=== PATIENT | female | born 1975 | race Caucasian/White ===

== ENCOUNTER 2018-07-19 21:38 | Emergency (ER) | payer MEDICAID ==
[~2018-07-19] VITALS: Ht 175.3 cm; Wt 113.4 kg
[~2018-07-19 21:38] MED LIST: NO MEDS
[2018-07-19 21:42] VITALS: BP 173/108
--- NOTE | 2018-07-19 21:46 | NUR ---
PT TAKEN TO BED 2
--- NOTE | 2018-07-19 21:54 | NUR ---
PT PRESENTS TO ED WITH C/O RASH TO BILATERAL LEGS S/P [place] BITES X 1 MONTH. RED RASH NOTED TO BILATERAL LEGS. SKIN INTACT. PT DENIES PAIN AT THIS TIME. PT DENIES SOB, CP. PT PLACED IN BED, PENDING MD DIA. VSS.
[2018-07-19 22:19] VITALS: BP 168/99
--- NOTE | 2018-07-19 22:20 | NUR ---
Patient discharged with v/s stable. Written and verbal after care instructions given and explained. Patient alert, oriented and verbalized understanding of instructions. Ambulatory with steady gait. All questions addressed prior to discharge. ID band removed. Patient advised to follow up with PMD. Rx of KEFLEX, DIPHENHYDRAMINE, PREDNISONE given. Patient educated on indication of medication including possible reaction and side effects. Opportunity to ask questions provided and answered.
== END 2018-07-19 22:20 | disposition home or self-care (01) ==
LOC: MED 21:38
DX: L25.9 Unspecified contact dermatitis, unspecified cause (principal)
CPT/HCPCS: 99283

== ENCOUNTER 2020-04-17 10:21 | Emergency (ER) | payer MEDICAID ==
[~2020-04-17] VITALS: Ht 175.3 cm; Wt 113.4 kg
[2020-04-17 10:24] VITALS: BP 155/97
--- NOTE | 2020-04-17 10:32 | NUR ---
PT AMUBULATED TO ER BED 07
[2020-04-17] MEDS ORDERED: ONDANSETRON 4 MG ODT PO ONE (10:40)
[2020-04-17] MEDS ORDERED: MECLIZINE 25 MG TAB PO ONE (10:45)
--- NOTE | 2020-04-17 10:45 | NUR ---
45 Y/O FEMALE PRESENTS WITH DIZZINESS THAT BEGAN 5 DAYS AGO, FOLLOWED BY NAUSEA AND VOMITING. PT STATES "IT FEELS LIKE THE ROOM IS SPINNING EVEN WHEN MY EYES ARE CLOSED", DENIES ANY ABD PAIN, HEADACHE, FEVER, CHILLS, COUGH. LMP: PT IS CURRENTLY SPOTTING AND ALSO HAD A HYSTERECTOMY 17 YEARS AGO. VSS. RESP EVEN AND UNLABORED. ABD SOFT/NON DISTENDED. BOWEL SOUNDS NORMOACTIVE IN ALL QUADRANTS.
--- NOTE | 2020-04-17 11:07 | NUR ---
pt taken to ct via wheelchair
--- NOTE | 2020-04-17 11:10 | NUR ---
PT BACK FROM CT SCAN, RESTING IN BED AT THIS TIME
[2020-04-17 11:48] VITALS: BP 155/97
== END 2020-04-17 11:49 | disposition home or self-care (01) ==
LOC: MED 10:21
DX: R42 Dizziness and giddiness (principal); R03.0 Elevated blood-pressure reading, without diagnosis of hypertension; R11.2 Nausea with vomiting, unspecified
CPT/HCPCS: 70450; 81025; 99284; J8597; Q0162

== ENCOUNTER 2021-05-03 13:05 | Emergency (ER) | payer MEDICAID ==
[~2021-05-03] VITALS: Ht 175.3 cm; Wt 127.0 kg
[2021-05-03 13:16] VITALS: BP 159/99
--- NOTE | 2021-05-03 13:22 | NUR ---
PT TAKEN TO BED 11.
[2021-05-03] MEDS ORDERED: KETOROLAC 30 MG/ML VIAL IVP ONE (13:45)
--- NOTE | 2021-05-03 13:50 | NUR ---
46 YO FEMALE BIBS C/O 06/15 EPIGASTRIC PAIN WITH N/V. THAT STARTED LASTNIGHT. PATIENT STATES S/S BEGAN LASTNIGHT, SHE TOOK A TUMS, WHEN TO SLEEP, AT 4AM AWOKE WITH SAME S/S SO DECIDED TO SEEK TREATMENT. VOMIT DESCRIBED NORMAL. PER PATIENT, SHE BELIEVES SHE MAY HAVE AN ULCER. DENIES SOB, CHEST PAIN, FEVER, CHILLS, DIARRHEA. PATIENT IS A&OX4, RR EVEN AND UNLABORED. PMH: DENIES NKDA
--- NOTE | 2021-05-03 14:26 | NUR ---
BLOOD WORK COLLECTED AND WALKED TO LAB.
[2021-05-03 14:50] LABS: BASOPHILS # (AUTO) 0.1 K/uL (0.00-0.22); BASOPHILS % (AUTO) 0.6 % (0.0-2.0); EOSINOPHILS # (AUTO) 0.1 K/uL (0-0.4); EOSINOPHILS % (AUTO) 0.9 % (0.0-4.0); HEMATOCRIT 39.9 % (36-48); HEMOGLOBIN 13.4 g/dL (12.0-16.0); LYMPHOCYTES # (AUTO) 0.8 K/uL (2.5-16.5); LYMPHOCYTES % (AUTO) 8.4 % (20.5-51.1); MEAN CORPUSCULAR HEMOGLOBIN 29 pg (27-31); MEAN CORPUSCULAR HGB CONC 34 g/dL (33-37); MEAN CORPUSCULAR VOLUME 87.2 fL (80-94); MONOCYTES # (AUTO) 0.7 K/uL (0.8-1.0); MONOCYTES % (AUTO) 7.3 % (1.7-9.3); NEUTROPHILS # (AUTO) 8.2 K/uL (1.8-7.7); NEUTROPHILS % (AUTO) 82.8 % (42.2-75.2); PLATELET COUNT (AUTO) 265 K/uL (140-450); RED BLOOD CELL COUNT(AUTO) 4.57 MIL/uL (4.20-5.40); RED CELL DISTRIBUTION WIDTH 15.2 % (11.6-13.7); WHITE BLOOD COUNT (AUTO) 9.9 K/uL (4.8-10.8)
[2021-05-03 15:09] LABS: ALBUMIN 3.4 g/dL (3.4-5.0); ANION GAP 14.1 (8-16); CARBON DIOXIDE 24.5 mmol/L (21-32); CREATININE 0.9 mg/dL (0.6-1.3); POTASSIUM 3.6 mmol/L (3.5-5.1); TOTAL BILIRUBIN 1.2 mg/dL (0.0-1.0)
--- NOTE | 2021-05-03 15:48 | NUR ---
ULTRASOUND AT BEDSIDE
--- NOTE | 2021-05-03 15:48 | NUR ---
Ugo tate in [facility] - 05/03/21 at 1559 by JOVITA RAD AT BEDSIDE
[2021-05-03 17:00] VITALS: BP 136/83
--- NOTE | 2021-05-03 17:22 | NUR ---
PATIENT IN BED AWAKE AND ALERT, RR EVEN AND UNLABORED.
--- NOTE | 2021-05-03 17:37 | NUR ---
DR SOL AT BEDSIDE SPEAKING WITH PATIENT.
--- NOTE | 2021-05-03 17:55 | NUR ---
Patient discharged with v/s stable. Written and verbal after care instructions given and explained. Patient verbalized understanding. Ambulatory with steady gait. All questions addressed prior to discharge. Advised to follow up with PMD.
== END 2021-05-03 17:55 | disposition home or self-care (01) ==
LOC: MED 13:05
DX: K80.20 Calculus of gallbladder without cholecystitis without obstruction (principal); R11.10 Vomiting, unspecified
CPT/HCPCS: 36415; 76705; 80053; 81002; 81025; 83690; 85025; 96374; 99284; J1885

== ENCOUNTER 2021-05-04 00:06 | Inpatient (IN) | payer MEDICAID, SELFPAY ==
[~2021-05-04] VITALS: Ht 175.3 cm; Wt 122.0 kg
[2021-05-04 00:27] VITALS: BP 166/97
--- NOTE | 2021-05-04 00:35 | NUR ---
SEE COMPLETE ASSESSMENT FOR FUTHER DETAILS.
--- NOTE | 2021-05-04 00:38 | NUR ---
ERMD AT BEDSIDE FOR MEDICAL EVALUATION.
[2021-05-04] MEDS ORDERED: KETOROLAC 30 MG/ML VIAL IVP ONE (00:40)
[2021-05-04] MEDS ORDERED: MORPHINE SULFATE 4 MG/ML SYR IVP ONE (00:40)
[2021-05-04] MEDS ORDERED: ONDANSETRON 4 MG/2 ML VIAL IVP ONE (00:40)
--- NOTE | 2021-05-04 00:50 | NUR ---
BLOOD DRAWN VIA IV START AND GIVEN TO KISHAN OVALLE TECH
[2021-05-04 01:13] LABS: BASOPHILS % (AUTO) 0.5 % (0.0-2.0); EOSINOPHILS # (AUTO) 0.2 K/uL (0-0.4); EOSINOPHILS % (AUTO) 2.2 % (0.0-4.0); HEMATOCRIT 40.3 % (36-48); HEMOGLOBIN 13.4 g/dL (12.0-16.0); LYMPHOCYTES # (AUTO) 1.1 K/uL (2.5-16.5); LYMPHOCYTES % (AUTO) 12.5 % (20.5-51.1); MEAN CORPUSCULAR HEMOGLOBIN 29 pg (27-31); MEAN CORPUSCULAR HGB CONC 33 g/dL (33-37); MEAN CORPUSCULAR VOLUME 87.5 fL (80-94); MONOCYTES # (AUTO) 0.8 K/uL (0.8-1.0); NEUTROPHILS # (AUTO) 6.3 K/uL (1.8-7.7); NEUTROPHILS % (AUTO) 74.8 % (42.2-75.2); PLATELET COUNT (AUTO) 287 K/uL (140-450); RED BLOOD CELL COUNT(AUTO) 4.61 MIL/uL (4.20-5.40); RED CELL DISTRIBUTION WIDTH 14.9 % (11.6-13.7); WHITE BLOOD COUNT (AUTO) 8.4 K/uL (4.8-10.8)
[2021-05-04 01:40] LABS: ALBUMIN 3.4 g/dL (3.4-5.0); ANION GAP 10.6 (8-16); CARBON DIOXIDE 27.7 mmol/L (21-32); CREATININE 1.2 mg/dL (0.6-1.3); POTASSIUM 4.3 mmol/L (3.5-5.1); TOTAL BILIRUBIN 0.7 mg/dL (0.0-1.0)
[2021-05-04 01:52] LABS: BILIRUBIN,DIRECT 0.3 mg/dL (0.0-0.3); TOTAL BILIRUBIN 0.7 mg/dL (0.0-1.0)
[2021-05-04] MEDS ORDERED: cefTRIAXone 2,000 MG in DEXTROSE 5% 100 ML IV ONE (03:00)
[2021-05-04] MEDS ORDERED: metroNIDAZOLE 500 MG/NS PREMIX 100 ML IV ONE (03:00)
--- NOTE | 2021-05-04 03:06 | NUR ---
Patient denies pain at this time. 0/10 abdominal pain. Patient has no episodes of n/v at this time. Patient given blanket for comfort measures. IV remains patient. patient remains on caridac monitor. VSS. Bed is locked and in lowest position.
[2021-05-04] MEDS ORDERED: cefTRIAXone 2,000 MG VIAL ONE (03:36)
[2021-05-04] MEDS ORDERED: DEXT 5% / NACL 0.9% 1,000 ML IV SCH (04:05)
--- NOTE | 2021-05-04 05:12 | NUR ---
Patient appears to be resting comfortably in bed. Patient remains on caridac monitor. Vital Signs within normal limits. Respirations even and unlabored. bed is locked and in lowest postion at this time.
--- NOTE | 2021-05-04 06:50 | NUR ---
PATIENT HAD C/O 7/10 LUQ PAIN, PRN MORPHINE 2MG GIVEN IVP. PATIENT REMAINS ON TELEPHONE SURVEYOR. VSS. BED IS LOCKED AND IN LOWEST POSITION.
[2021-05-04] MEDS: MORPHINE SULFATE 2 MG/ML SYR IVP PRN ×3 (06:58→21:17)
--- NOTE | 2021-05-04 07:15 | NUR ---
GAVE REPORT TO OBEY CORDOVA, TRANSFER OF CARE.
--- NOTE | 2021-05-04 07:15 | NUR ---
REPORT RECEIVED FROM MALENA CORDOVA FOR CONTINUITY OF CARE
--- NOTE | 2021-05-04 07:16 | NUR ---
PT A&OX4, AWAKE, ON ROOM AIR. IV SITE RT AC 20 G INFUSING D5 NS AT 80 ML/HR. CALL LIGHT WITHIN REACH. SAFETY PREACAUTIONS IN PLACE. WILL CONTINUE TO MONITOR.
--- NOTE | 2021-05-04 07:41 | NUR ---
Patient will be admitted to care of DR STEIN. Admited to [facility]. Will go to room 105A. Belongings list completed. Report to XIMENA CORDOVA.
--- NOTE | 2021-05-04 07:41 | NUR ---
RECEIVED REPORT FROM EXHAUSTER FOR PATIENT. PATIENT IS BEING ADMITTED FOR CHOLECYSTITIS, CHIEF COMPLAINT WAS ABDOMINAL PAIN. PATIENT IS NPO EXCEPT MEDS AND AWAITING A HIDA SCAN PROCEDURE. WILL WAIT FOR PATIENT TO ARRIVE TO UNIT.
--- NOTE | 2021-05-04 07:48 | NUR ---
RECEIVED PATIENT FROM ER. PATIENT IS STABLE. RESPIRATIONS ARE EVEN AND UNLABORED. PATIENT IS NPO EXCEPT MEDS AWAITING HIDA SCAN.
[2021-05-04] MEDS ORDERED: ZOLPIDEM 5 MG TAB PO PRN (08:05)
[2021-05-04] MEDS ORDERED: POTASSIUM CHLORIDE 10 MEQ TABER PO PRN (08:05)
[2021-05-04] MEDS ORDERED: ACETAMINOPHEN 325 MG TAB PO PRN (08:05)
[2021-05-04] MEDS ORDERED: ONDANSETRON 4 MG/2 ML VIAL IM/IVP PRN (08:05)
[2021-05-04] MEDS ORDERED: HYDROcodone/APAP 7.5/325 MG 1 TAB PO PRN (08:05)
[2021-05-04] MEDS ORDERED: DOCUSATE SODIUM 100 MG GELCAP PO PRN (08:05)
[2021-05-04] MEDS: DEXT 5% /NACL 0.9% 1,000 ML IV SCH ×3 (08:05→21:17)
[2021-05-04] MEDS ORDERED: guaiFENesin DM 200/20 MG-10 ML 10 ML UDC PO PRN (08:05)
--- NOTE | 2021-05-04 08:25 | NUR ---
DR. UPTON AT BEDSIDE DISCUSSING PLAN OF CARE WITH PATIENT. PATIENT VERBALIZED UNDERSTANDING.
[2021-05-04 09:45] LABS: PROTHROMBIN TIME 10.6 secs (10.8-13.4)
[2021-05-04] MEDS: PANTOPRAZOLE 40 MG TABEC PO SCH (09:49)
[2021-05-04 09:56] LABS: CHOL/HDL RATIO 5.1 (1-4.5); FREE T4 (FREE THYROXINE) 0.9 ng/dL (0.76-1.46); MAGNESIUM 1.7 mg/dL (1.8-2.4); THYROID STIMULATING HORMONE 1.86 uIU/mL (0.34-3.74)
--- NOTE | 2021-05-04 13:00 | NUR ---
MOWING MACHINE OPERATOR AT BEDSIDE WITH PATIENT STARTING HIDA SCAN. PATIENT IS STABLE.
--- NOTE | 2021-05-04 15:05 | NUR ---
PATIENT IS RESTING IN BED. NO S/S OF DISTRESS. ALL SAFETY PRECAUTIONS IN PLACE.
[2021-05-04 16:00] VITALS: BP 156/95
[2021-05-04 16:44] LABS: APPEARANCE,URINE SL CLOUDY (CLEAR); BILIRUBIN,URINE NEGATIVE (NEGATIVE); BLOOD, URINE 3+ (NEGATIVE); COLOR,URINE YELLOW (YELLOW); LEUKOCYTE ESTERASE ,URINE TRACE (NEGATIVE); NITRITE, URINE NEGATIVE (NEGATIVE); PH,URINE 5.5 (5.0-9.0); UGLUCOSE TRACE (NEGATIVE)
[2021-05-04 16:50] LABS: RBC,URINE >100 /HPF (0-5)
[2021-05-04 16:53] LABS: BARBITURATE, URINE NEGATIVE ng/ml (NEG <=200); BENZODIAZEPINE, URINE NEGATIVE ng/mL (NEG <=200); CANNABINOID, URINE NEGATIVE ng/mL (NEG <=50); COCAINE, URINE NEGATIVE ng/mL (NEG <=300); OPIATE, URINE POSITIVE ng/mL (NEG <=2000); PHENCYCLIDINE SCREEN,URINE NEGATIVE ng/mL (NEG <=25)
--- NOTE | 2021-05-04 17:20 | NUR ---
PATIENT IS RESTING IN BED. NO S/S OF DISTRESS. ALL SAFETY PRECAUTIONS IN PLACE.
--- NOTE | 2021-05-04 19:32 | NUR ---
ENDORSED PATIENT AND PLAN OF CARE TO FOUNDER CEO & PRESIDENT RN FOR CONTINUITY OF CARE. PATIENT IS STABLE.
--- NOTE | 2021-05-04 19:39 | NUR ---
RECEIVEDREPORT AT BEDSIDE.PT'S CONDITION IS STABLE.IVF INFUSING WELL.NO RESP DISTRESS NOTED.CALL LIGHT WITHIN REACH.WILL CONT.MONITORING.
[2021-05-04 20:00] VITALS: BP 144/80
--- NOTE | 2021-05-05 02:16 | NUR ---
NPO AFTER MN.SLEEPING.PRE-OP CHECK LIST DONE.NO DISTRESS NOTED AT PRESENT TIME.
[2021-05-05 04:00] VITALS: BP 140/78
[2021-05-05] MEDS: DEXT 5% /NACL 0.9% 1,000 ML IV SCH (05:37)
--- NOTE | 2021-05-05 06:04 | NUR ---
SLEPT WELL.WILL HAVE LAP.BRENDA TODAY.NO DISTRESS NOTED.
[2021-05-05 06:16] LABS: T4 (THYROXINE) 7.6 ug/dL (4.5-12.0)
[2021-05-05 07:23] LABS: HEMATOCRIT 36.6 % (36-48); HEMOGLOBIN 11.9 g/dL (12.0-16.0); MEAN CORPUSCULAR HEMOGLOBIN 29 pg (27-31); MEAN CORPUSCULAR HGB CONC 33 g/dL (33-37); MEAN CORPUSCULAR VOLUME 88.4 fL (80-94); PLATELET COUNT (AUTO) 244 K/uL (140-450); RED BLOOD CELL COUNT(AUTO) 4.14 MIL/uL (4.20-5.40); RED CELL DISTRIBUTION WIDTH 15.1 % (11.6-13.7); WHITE BLOOD COUNT (AUTO) 18.4 K/uL (4.8-10.8)
[2021-05-05] MEDS ORDERED: LIDOCAINE 1% 500 MG/50 ML VIAL ONE (07:31)
[2021-05-05] MEDS ORDERED: BUPIVACAINE-MPF/EPI 0.25% 10 ML VIAL INJ ONE ×2 (07:32→09:05)
[2021-05-05 07:37] LABS: ANION GAP 8.8 (8-16); CARBON DIOXIDE 26.7 mmol/L (21-32); CREATININE 0.8 mg/dL (0.6-1.3); POTASSIUM 3.5 mmol/L (3.5-5.1)
[2021-05-05 07:41] LABS: LYMPHOCYTES % (MANUAL) 4 % (20-46); MONOCYTES % (MANUAL) 8 % (5-12)
[2021-05-05] MEDS ORDERED: PROPOFOL 200 MG/20 ML VIAL IV ONE (07:55)
[2021-05-05] MEDS ORDERED: fentaNYL citrate 0.05 MG/ML VIAL ONE (07:55)
[2021-05-05] MEDS ORDERED: MEPERIDINE 25 MG/ML SYR ONE (07:56)
[2021-05-05] MEDS ORDERED: ONDANSETRON 4 MG/2 ML VIAL ONE (07:57)
[2021-05-05] MEDS ORDERED: SUCCINYLCHOLINE CHLORIDE 200 MG/10 ML VIAL IVP ONE (07:57)
[2021-05-05] MEDS ORDERED: NEOSTIGMINE 1:1000 10 MG/10 ML VIAL ONE (07:57)
[2021-05-05] MEDS ORDERED: LIDOCAINE MPF 2% 100 MG/5 ML VIAL INJ ONE (07:57)
[2021-05-05] MEDS ORDERED: ROCURONIUM 50 MG/5 ML VIAL IV ONE ×2 (07:57→09:30)
[2021-05-05] MEDS ORDERED: GLYCOPYRROLATE 0.2 MG/ML VIAL ONE (07:57)
[2021-05-05] MEDS ORDERED: METOCLOPRAMIDE 10 MG/2 ML INJ VIAL ONE (07:57)
[2021-05-05 08:00] VITALS: BP 138/84
--- NOTE | 2021-05-05 08:00 | NUR ---
RECEIVED REPORT FROM CONSUMER AFFAIRS DIRECTOR FOR CONTINUITY OF CARE. INITIAL ASSESSMENT INITIATED. WITH IVF ON GOING AND INFUSING WELL.DENIES PAIN AT THIS TIME. NPO OBSERVED FOR SURGERY TODAY. NEEDS ATTENDED. WILL CONTINUE TO MONITOR.
--- NOTE | 2021-05-05 08:22 | NUR ---
PATIENT [facility], ALERT AWAKE ORIENTED X4. VITALS STABLE.
--- NOTE | 2021-05-05 08:28 | NUR ---
PATIENT HAS BEEN SCREENED AND CATEGORIZED LOW NUTRITION RISK. PATIENT WILL BE SEEN WITHIN 7 DAYS OF ADMISSION. 05/10/[address]
[2021-05-05] MEDS ORDERED: SEVOFLURANE 250 ML BTL INH ONE (08:30)
[2021-05-05] MEDS ORDERED: fentaNYL citrate 0.05 MG/ML VIAL IVP PRN (09:25)
[2021-05-05] MEDS ORDERED: ONDANSETRON 4 MG/2 ML VIAL IVP PRN (09:25)
[2021-05-05] MEDS ORDERED: BLOOD GLUCOSE MONITORING 1 DEV DEV FS ONE (09:25)
[2021-05-05] MEDS ORDERED: MEPERIDINE 25 MG/ML SYR IVP PRN (09:25)
[2021-05-05] MEDS ORDERED: LACTATED RINGERS 1,000 ML IV SCH (09:25)
[2021-05-05] MEDS ORDERED: ceFAZolin 1,000 MG VIAL ONE (09:30)
[2021-05-05] MEDS ORDERED: LABETALOL 100 MG/20 ML VIAL ONE (10:11)
[2021-05-05] MEDS ORDERED: KETOROLAC 30 MG/ML VIAL ONE (10:18)
[2021-05-05] MEDS ORDERED: HYDROcodone/APAP 5/325 MG 1 TAB TAB PO PRN (10:20)
[2021-05-05] MEDS ORDERED: HYDROmorphone 1 MG/ML AMP IVP PRN (10:20)
[2021-05-05] MEDS ORDERED: MAGNESIUM OXIDE 400 MG TAB PO SCH (10:39)
[2021-05-05] MEDS ORDERED: NACL 0.9% 1,000 ML IV SCH (10:40)
[2021-05-05] MEDS ORDERED: DOCUSATE SODIUM 100 MG GELCAP PO SCH (10:45)
--- NOTE | 2021-05-05 11:15 | NUR ---
PATIENT BACK FROM SURGERY, REPORT GIVEN BY ART FINK. WITH 4 INCISION DRY AND NO SIGN OF BLEEDING NOTED. PATIENT ALERT AWAKE ORIENTED, DENIES PAIN. VITALS TAKEN, STABLE. WILL CONTINUE TO MONITOR.
[2021-05-05] MEDS: PANTOPRAZOLE 40 MG TABEC PO SCH (12:08)
--- NOTE | 2021-05-05 13:00 | NUR ---
PATIENT ABLE TO AMBULATE TO THE BATHROOM, DIDN'T PASS GAS YET BUT BURPING. TOLERATE SOLID FOOD. WANTS TO GO HOME. WILL CONTINUE TO MONITOR.
[2021-05-05] MEDS ORDERED: DOCU-299 PO (16:43)
[2021-05-05 17:14] LABS: BASOPHILS % (AUTO) 0.3 % (0.0-2.0); EOSINOPHILS % (AUTO) 0.1 % (0.0-4.0); HEMOGLOBIN 11.7 g/dL (12.0-16.0); LYMPHOCYTES # (AUTO) 0.9 K/uL (2.5-16.5); LYMPHOCYTES % (AUTO) 6.5 % (20.5-51.1); MEAN CORPUSCULAR HEMOGLOBIN 29 pg (27-31); MEAN CORPUSCULAR HGB CONC 33 g/dL (33-37); MONOCYTES # (AUTO) 0.9 K/uL (0.8-1.0); MONOCYTES % (AUTO) 6.1 % (1.7-9.3); NEUTROPHILS # (AUTO) 12.4 K/uL (1.8-7.7); PLATELET COUNT (AUTO) 226 K/uL (140-450); RED BLOOD CELL COUNT(AUTO) 4.09 MIL/uL (4.20-5.40); RED CELL DISTRIBUTION WIDTH 15.1 % (11.6-13.7); WHITE BLOOD COUNT (AUTO) 14.3 K/uL (4.8-10.8)
[2021-05-05] MEDS ORDERED: CEPH250C16 PO (17:28)
--- NOTE | 2021-05-05 18:14 | NUR ---
DISCHARGE PATIENT TO HOME AMBULATORY ACCOMPANIED BY THE . DC INSTRUCTION AND PRESCRIPTION GIVEN. IN STABLE CONDITION.
== END 2021-05-05 18:15 | disposition home or self-care (01) | DRG 263 ==
LOC: MED 00:06 → MTU 04:03
PROVIDERS: ADMIT Family Medicine; ATTEND Family Medicine
PROC: BF532Z0 Other Imaging of Gallbladder and Bile Ducts using Fluorescing Agent, Intraoperative (ICD-10-PCS; 2021-05-05)
PROC: 0DNU4ZZ Release Omentum, Percutaneous Endoscopic Approach (ICD-10-PCS; 2021-05-05)
PROC: 0FT44ZZ Resection of Gallbladder, Percutaneous Endoscopic Approach (ICD-10-PCS; principal; 2021-05-05 08:30)
DX: K80.00 Calculus of gallbladder with acute cholecystitis without obstruction (principal); E66.9 Obesity, unspecified; E83.42 Hypomagnesemia; R74.01 Elevation of levels of liver transaminase levels; R73.9 Hyperglycemia, unspecified; E78.2 Mixed hyperlipidemia; Z20.822 Contact with and (suspected) exposure to COVID-19; N39.0 Urinary tract infection, site not specified; E86.0 Dehydration; K66.0 Peritoneal adhesions (postprocedural) (postinfection); Z98.51 Tubal ligation status; Z80.8 Family history of malignant neoplasm of other organs or systems; Z83.3 Family history of diabetes mellitus; Z71.3 Dietary counseling and surveillance; Z82.49 Family history of ischemic heart disease and other diseases of the circulatory system; Z82.3 Family history of stroke; Z68.39 Body mass index [BMI] 39.0-39.9, adult
CPT/HCPCS: 36415; 71045; 77003; 78445; 80048; 80053; 80305; 81001; 81025; 82150; 82247; 82248; 83036; 83690; 83735; 83880; 84100; 84436; 84439; 84443; 84479; 84484; 85025; 85610; 85730; 86886; 86900; 86901; 87081; 87086; 88304; 93005; 96365; 96367; 96375; 99285; J0330; J0690; J0696; J1885; J2001; J2175; J2270; J2405; J2704; J2710; J2765; J3010; J3490; J7030; J7060; J7120